=== PATIENT | male | born 1995 | race Caucasian/White ===

== ENCOUNTER 2017-10-07 16:04 | Emergency (ER) | payer OTHER ==
[~2017-10-07 16:04] MED LIST: NAPR500 PO
[2017-10-07 16:23] VITALS: BP 147/76; PULSE 109; RESP 18; TEMP 98.6; O2SAT 98
--- NOTE | 2017-10-07 16:50 | RADRPT ---
EXAM DATE/TIME: 10/07/2017 16:37 [place] COMPARISON: No previous studies available for comparison. INDICATIONS : Right knee pain. Patient heard a pop and felt a burning sensation. MEDICAL HISTORY : None. SURGICAL HISTORY : None. ENCOUNTER: Initial ACUITY: 1 day PAIN SCORE: 10/10 LOCATION: Right knee. FINDINGS: Four view examination of the right knee demonstrates no evidence of fracture or dislocation. Bony mi neralization is normal. The articular surfaces are intact. The suprapatellar soft tissues have a no rmal configuration. CONCLUSION: Negative for fracture. MRI would be of benefit of internal derangement is suspected. There is no joint effusion. Nik Liz MD FACR on October 07, 2017 at 16:47 Board Certified Radiologist. This report was verified electronically.
--- NOTE | 2017-10-07 18:39 | PD ---
HPI Chief Complaint: Musculoskeletal Complaint Time Seen by Provider: 18:14 Travel History International Travel<30 days: No Contact w/Intl Traveler<30days: No Traveled to known affect area: No History of Present Illness HPI Patient comes emergency department complaining of right knee pain that began around 2:00 today. Patient reports he was moving a hot water heater when he felt like his right knee "gave out" on him causing a burning sensation in the anterior aspect of his right knee. Pain is worse with walking and certain movement. Patient denies anything making the pain better. Denies doing anything for this prior to coming to the emergency department. Denies any numbness or tingling. Denies fever or direct trauma. PFSH Past Medical History Medical History: Denies Significant Hx Social History Alcohol Use: No Tobacco Use: No Substance Use: No Allergies-Medications (Allergen,Severity, Reaction): Coded Allergies: penicillin G (Unverified Allergy, Unknown, Shortness of Breath, 03/17/17) Reported Meds & Prescriptions Reported Meds & Active Scripts Active Naprosyn (Naproxen) 500 Mg Tab 500 Mg PO Q12HR PRN Naprosyn (Naproxen) 500 Mg Tab 500 Mg PO BID PRN Take with food Review of Systems Except as stated in HPI: all other systems reviewed are Neg Physical Exam Narrative GENERAL: Well-developed, well nourished, in no acute distress, and non-ill appearing. SKIN: Focused skin assessment warm and dry. HEAD: Atraumatic. Normocephalic. EYES: Pupils equal and round. EOMI. No scleral icterus. No injection or drainage. ENT: No nasal bleeding or discharge. Mucous membranes pink and moist. NECK: Trachea midline. Supple. No nuclear rigidity. CARDIOVASCULAR: Dorsal pulses 2+, intact, and equal bilaterally. Capillary refill less than 2 seconds. RESPIRATORY: No accessory muscle use. No respiratory distress. MUSCULOSKELETAL: No obvious deformities. No clubbing. No cyanosis. No edema. Full range of motion. Knee: Negative patellar apprehension, varus and valgus maneuvers, anterior draw test, and Sean test. Pulses equal BL distal to injury. Capillary refill less than 2 seconds distal to injury and equal BL. FROM distal to injury and equal BL. Strength distal to injury equal BL. NV intact distal to injury. Dorsal pulses equal BL. Sensation equal BL 1st web space. Patient reports point tenderness over anterior aspect of right knee. No crepitus. No erythematous or soft tissue swelling appreciated. NEUROLOGICAL: Awake and alert. No obvious cranial nerve deficits. Motor grossly within normal limits. Normal speech. PSYCHIATRIC: Appropriate mood and affect; insight and judgment normal. Data Data Last Documented VS Vital Signs Date Time Temp Pulse Resp B/P (MAP) Pulse Ox O2 Delivery O2 Flow Rate FiO2 10/07/17 16:23 98.6 109 18 147/76 (99) 98 Orders Orders Knee, Complete (4vws) (10/07/17 ) Ed Discharge Order (10/07/17 18:35) Splint Or Brace Apply/Monitor (10/07/17 18:35) [facility] Medical Decision Making Medical Screen Exam Complete: Yes Emergency Medical Condition: Yes Interpretation(s) Last Impressions Knee X-Ray 10/07/17 0000 Signed Impressions: Service Date/Time: Saturday, October 07, 2017 16:37 - CONCLUSION: Negative for fracture. MRI would be of benefit of internal derangement is suspected. There is no joint effusion. Nik Liz MD FACR Differential Diagnosis Fracture, sprain, contusion, meniscus tear, dislocation Narrative Course There is no clinical evidence to suspect bony injury by exam. Radiographic examination revealed no fracture seen at this time. No obvious ligamental injury or obvious internal derangement is noted at this time. The anterior, posterior, lateral and medial collateral ligaments are intact and symmetrical. The distal extremity appears neurovascularly intact, without evidence of neurovascular injury nor compartment syndrome. Tendon exam also was intact. The patient was discharged verbal with sprain and splint care instructions and given warnings for vascular compromise. The patient is to follow up with Orthopedics. The patient agrees with plan. Patient in no obvious distress upon re-evaluation. All pertinent Radiology result(s) discussed with patient. Patient was asked if they wanted to speak to my attending, which the patient did not wish to do at this time. Any questions/ concerns in reference to patient diagnosis/condition discussed and clarified prior to patient's discharge. Reinforced sheer importance of close follow up with patient's primary physician or primary care clinic. Instructed patient to return to ED immediately, if symptoms return/worsen. Patient showed understanding of above instructions. Further instructions and recommendations were detailed in discharge paperwork. Patient ambulated without difficulty out of ED at discharge. Knee immobilizer and crutches were ordered however patient left prior to receiving them. Patient also walked out without receiving his prescription. Diagnosis Primary Impression: Right knee sprain Qualified Codes: S83.91XA - Sprain of unspecified site of right knee, initial encounter Referrals: Los Mckeon MD [facility] Patient Instructions: Crutch Instructions (ED), General Instructions, Knee Immobilizer (ED), Knee Sprain (ED) Additional Instructions: Follow-up with your primary care physician and/or orthopedic in 2-3 days for reevaluation. Take all medication as prescribed. Apply ice to affected area 20 minutes prior as needed for pain. Wear knee immobilizer while awake until reevaluated by primary care and/or orthopedic. Use crutches as needed for additional support until reevaluated. Return to the emergency department if symptoms get worse. Med/Other Pt SpecificInfo: Prescription(s) given Scripts Naproxen (Naprosyn) 500 Mg Tab 500 MG PO Q12HR Y for PAIN SCALE 1 TO 10, #14 TAB 0 Refills Prov: Betzaida Medrano MD 10/07/17 Disposition: 01 DISCHARGE HOME Condition: Stable Chava Coley Oct 07, 2017 18:39
[2017-10-07] MEDS ORDERED: NAPR500 PO (18:40)
== END 2017-10-07 19:12 | disposition home or self-care (01) ==
LOC: NEPK 16:04
DX: S83.91XA Sprain of unspecified site of right knee, initial encounter (principal); X50.0XXA Overexertion from strenuous movement or load, initial encounter; Z88.0 Allergy status to penicillin
CPT/HCPCS: 73564; 99283; E0113; L1830